=== PATIENT | female | born 1970 | race Hispanic/Latino ===

== ENCOUNTER 2023-06-05 00:52 | Emergency (ER) | payer OTHER ==
[~2023-06-05] VITALS: Ht 160 cm; Wt 59.0 kg
[2023-06-05] MEDS ORDERED: HYDR50CA50 PO (01:24)
[2023-06-05] MEDS: LORAZEPAM 2 MG/ML 1 ML VIAL IM ONE (01:51)
[2023-06-05 02:01] VITALS: BP 132/51; PULSE 82; RESP 16; O2SAT 98
== END 2023-06-05 02:01 | disposition home or self-care (01) ==
LOC: EDH 00:52
DX: F41.9 Anxiety disorder, unspecified (principal); I10 Essential (primary) hypertension; E11.9 Type 2 diabetes mellitus without complications
CPT/HCPCS: 99283; 96372; J2060